=== PATIENT | female | born 1975 | race Caucasian/White ===

== ENCOUNTER 2024-04-23 09:20 | Outpatient (CLI) | payer OTHER | END 2024-04-23 09:23 | disposition home or self-care (01) | LOC: SONOGRAMA 09:20 | PROVIDERS: ATTEND Pathology Anatomic Pathology & Clinical Pathology | DX: D44.0 Neoplasm of uncertain behavior of thyroid gland (principal); E04.2 Nontoxic multinodular goiter ==

== ENCOUNTER 2024-06-18 10:29 | Outpatient (CLI) | payer OTHER | END 2024-06-18 10:33 | disposition home or self-care (01) | LOC: SONOGRAMA 10:29 | PROVIDERS: ATTEND Pathology Anatomic Pathology | DX: D44.0 Neoplasm of uncertain behavior of thyroid gland (principal); E04.2 Nontoxic multinodular goiter ==